=== PATIENT | female | born 1975 ===

== ENCOUNTER 2020-02-06 13:14 | Outpatient (CLI) | payer MEDICAID ==
--- NOTE | 2020-02-06 22:30 | Consultation ---
DATE OF CONSULTATION: 02/06/2020 HISTORY OF PRESENT ILLNESS: The patient is a 44-year-old female who was diagnosed with Crohn's about a year ago. According to her, she had endoscopy, colonoscopy, and capsule endoscopy colon. At one point, she was offered 6-MP, she refused. Currently asymptomatic except for mild diarrhea and rectal bleeding secondary to hemorrhoids. PAST MEDICAL HISTORY: 1. Crohn disease. 2. Hemorrhoids. 3. Asthma. 4. Hypercholesterolemia. 5. Hypertension. 6. Carpal tunnel syndrome. 7. Breast lump. PAST SURGICAL HISTORY: and hemorrhoidectomy. MEDICATIONS: See medication reconciliation list. FAMILY HISTORY: No family history of GI malignancies. SOCIAL HISTORY: The patient smokes weed on a daily basis. Otherwise, no any other alcohol or IV drug abuse or tobacco abuse. ALLERGIES: No known allergies. REVIEW OF SYSTEMS: A 10-point review of systems was performed and pertinent positives in HPI. PHYSICAL EXAMINATION: GENERAL: A well-developed female, in no acute distress. HEENT: Normocephalic and atraumatic. Pale conjunctivae. NECK: Supple. No evidence of obvious lymphadenopathy. CARDIOVASCULAR: Regular rhythm. Plus S1 and S2. LUNGS: Clear to auscultation bilaterally. ABDOMEN: Positive bowel sounds. Soft and nontender. No rebound. No guarding. No peritoneal sign. EXTREMITIES: No cyanosis, no clubbing, no edema. ASSESSMENT AND PLAN: This is a 44-year-old female with possible history of Crohn disease, currently off of medication, mildly symptomatic, needs colonoscopy. The patient was given instruction for colonoscopy. Prep was explained to her. We will schedule her for colonoscopy when authorization is obtained. Ab Simon M.D. DR: Angelina JOB#: [id number] CC:
[2020-02-07] MEDS ORDERED: AZELASTINE (15:28)
[2020-02-07] MEDS ORDERED: BREO ELLIPTA 11 EACH IH (15:28)
[2020-02-07] MEDS ORDERED: VITAMIN B6 (15:28)
[2020-02-07] MEDS ORDERED: VALACYCLOVIR500 MG ORAL (15:28)
[2020-02-07] MEDS ORDERED: PREDNISONE5 M3 PO (15:28)
[2020-02-07] MEDS ORDERED: PROAIR HFA8.5 GM INH (15:28)
[2020-02-07] MEDS ORDERED: HYDROCODON-ACE1 EA16 ORAL (15:28)
[2020-02-07] MEDS ORDERED: FLUTICASONE PRO16 G1 NASAL (15:28)
[2020-02-07] MEDS ORDERED: DOCUSATE SODIU100 MG ORAL (15:28)
[2020-02-07] MEDS ORDERED: FAMOTIDINE20 MG ORAL (15:28)
== END 2020-02-06 15:49 | disposition home or self-care (01) ==
LOC: PAN 13:14
DX: R19.7 Diarrhea, unspecified (principal); K64.9 Unspecified hemorrhoids; K50.90 Crohn's disease, unspecified, without complications; E78.00 Pure hypercholesterolemia, unspecified; I10 Essential (primary) hypertension; F12.90 Cannabis use, unspecified, uncomplicated

== ENCOUNTER 2020-04-04 13:06 | Outpatient (CLI) | payer MEDICAID ==
[~2020-04-04 13:06] MED LIST: AZELASTINE; BREO ELLIPTA 11 EACH IH; DOCUSATE SODIU100 MG ORAL; FAMOTIDINE20 MG ORAL; FLUTICASONE PRO16 G1 NASAL; HYDROCODON-ACE1 EA16 ORAL; PREDNISONE5 M3 PO; PROAIR HFA8.5 GM INH; VALACYCLOVIR500 MG ORAL; VITAMIN B6
[2020-04-04 15:39] VITALS: BP 109/64
--- NOTE | 2020-04-04 19:29 | Progress Note ---
DATE: 04/04/2020 SUBJECTIVE: Followup after procedure. PHYSICAL EXAMINATION: VITAL SIGNS: Temperature 97.7, blood pressure , pulse 69, respirations 20. HEENT: Normocephalic, atraumatic. Sclerae anicteric. NECK: Supple. No evidence of obvious lymphadenopathy. CARDIOVASCULAR: Regular rate and rhythm. Plus S1-S2. LUNGS: Clear to auscultation bilaterally. ABDOMEN: Positive bowel sounds. Soft and nontender. No rebound. No guarding. No peritoneal sign. EXTREMITIES: No cyanosis. No clubbing. No edema. ASSESSMENT AND PLAN: This is a 44-year-old female with diagnosis of Crohn disease. Colonoscopy was negative, but was poor prep, so we could not intubate the terminal ileum, but per patient and her chart, apparently she had diagnosis of Crohn's. It is mainly in the terminal ileum. Currently on not any medication. Asymptomatic except for some loose stools. Plan to start the patient on Pentasa 1 g 3 times a day. Patient was given a prescription and follow up to the office in 6 months. Patient was asking for domperidone medication for her nausea and gastroparesis, but we decided at this time given this prescription is not allowing not to give her any prescription at this time. Ab Simon M.D. DR: JAKE JOB#: [id number] CC:
== END 2020-04-04 15:06 | disposition home or self-care (01) ==
LOC: PAN 13:06
DX: K50.90 Crohn's disease, unspecified, without complications (principal); K31.84 Gastroparesis; R11.0 Nausea
CPT/HCPCS: 99212